=== PATIENT | female | born 1935 | race Caucasian/White ===

== ENCOUNTER → 2018-04-13 09:52 | Outpatient (CLI) | payer MEDICARE, OTHER, SELFPAY ==
[2018-04-13 10:36] LABS: Add Manual Diff / Slide Review NO; Basophils Percent Auto 1.1 % (0-2); Eosinophils Percent Auto 0.9 % (2-4); Hematocrit 41.9 % (36-46); Lymphocytes Percent Auto 27.7 % (25-40); Mean Corpuscular HGB Conc 33.4 % (30-36); Mean Corpuscular Hemoglobin 31.2 PG (26-34); Mean Corpuscular Volume 93.2 fL (80-100); Monocytes Percent Auto 7.2 % (3-14); Neutrophils Absolute Auto 5200 /uL (3000-5900); Neutrophils Percent Auto 63.1 % (50-75); Platelet Count 238 X10^3/uL (150-400); Red Cell Distribution Width 13.8 % (11.6-14.8); White Blood Cell Count 8.3 X10^3/uL (4.5-11.0)
[2018-04-13 10:53] LABS: Alanine Aminotransferase 21 IU/L (9-52); Albumin 4.3 g/dL (3.5-5.0); Albumin Globulin Ratio 1.4 (1.0-2.8); Alkaline Phosphatase 93 U/L (38-126); Aspartate Aminotransferase 23 IU/L (14-36); Bilirubin Total 0.5 mg/dL (0.2-1.3); Blood Urea Nitrogen 27 mg/dL (7-17); Calcium 9.4 mg/dL (8.4-10.2); Carbon Dioxide 30 mmol/L (22-32); Chloride 106 mmol/L (98-107); Estimated Glomerular Filt Rate > 60.0 mL/min (>60); Globulin 3.1 g/dL (1.7-4.1); Glucose 91 mg/dL (80-110); HEMOLYSIS < 15 (0-50); Potassium 4.8 mmol/L (3.4-5.1); Sodium 146 mmol/L (137-145); Total Protein 7.4 g/dL (6.3-8.2)
[2018-04-15 16:09] LABS: Cancer Antigen 27.29 14 U/mL (< 38)
== END ==
PROVIDERS: Family Provider Family Medicine; PCP Family Medicine; Visit Provider Nurse Practitioner Gerontology
DX: C50.112 Malignant neoplasm of central portion of left female breast (principal)
CPT/HCPCS: 36415; 80053; 85025; 86300

== ENCOUNTER 2018-04-20 11:40 | Oncology outpatient (ONC) | payer MEDICARE, OTHER, SELFPAY ==
--- NOTE | 2018-04-20 11:50 | ONC.PN ---
PN -Subjective Interval history: Chief Complaint: 82 year old with left breast cancer here for scheduled follow up History of Present illness: She was last seen by Dr. Romero about 1 year ago in April of 2017. Patient has a history of left-sided breast cancer. Patient underwent lumpectomy on October 30, 2011. 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 On sentinel lymph node negative. The primary tumor was 1.1 cm in diameter. ER positive, MT positive, HER2 neg. Patient completed radiotherapy in January of 2012. Oncotype testing reviewed a recurrence score of only 10. And patient was negative for BRCA1 gene in September 2011. Patient also underwent hysterectomy/bilateral salpingo-oophorectomy in 2005. For uterus prolapse. Patient is a 1. Since last visit patient said that overall she has been doing pretty good. Patient said she is on a weight watchers program and has lost about 30 lb. Patient said that after the weight loss, she is moving better than before. Patient reported occasional twinges in the left breast and the left axilla at the place where the surgery happened before. Patient reported that on Friday, February the 12/31/2017, she noticed one episode of vaginal bleeding. It was somewhat painful. Patient has not scheduled visit to see a SENIOR MARKETING COORDINATOR doctor yet. Patient is planning to call Dr. Santos for the pelvic examination. She denies any new onset bone pain. She denies any hip pain. She denies any nausea or vomiting. No fever no chills. No nausea no vomiting. No diarrhea and no constipation. Patient underwent mammogram in November of 2017. The mammogram was interpreted as normal and 1 year follow-up screening mammogram was recommended. - Patient Self-Reported Symptoms SR Musculoskeletal issues: Joint pain or swelling (right shoulder pain) - Additional ROS All systems PM: reviewed and no additional remarkable complaints except as stated Home Medications and Allergies Home Medications Medication Instructions Recorded Confirmed Type ibuprofen 400 mg PO PRN #0 09/04/12 History cimetidine 200 mg PO PRN PRN #0 04/14/17 History potassium bicarb-citric acid 50 meq #0 07/22/17 History Allergies Allergy/AdvReac Type Severity Reaction Status Date / Time ciprofloxacin Allergy Unknown RASH Unverified 10/22/17 12:05 Sulfa (Sulfonamide Allergy Unknown RASH Unverified 10/22/17 12:05 Antibiotics) Exam Vital signs: Temperature 98.1?, heart rate 75, respiratory rate 16, blood pressure 142/76, pulse ox 96% on room air, weight 149.6 lb. ECOG 1 Narrative: Constitutional: Well developed, well nourished, not in any acute respiratory distress, average body habitus, well groomed, pleasant and cooperative, younger than stated age. HEENT: Normocephalic atraumatic. Extraocular muscle movement intact. Pupils are round, equal and reactive to light and accommodations. Anicteric sclera. No hearing difficulty; Oral mucus membrane moist and without ulcers. Neck: Supple, symmetrical, and tracheal midline; No palpable thyromegaly and no palpable lymph nodes. Respiratory: No use of accessory muscles. Clear to auscultation, and no wheezes or rales or rubs. Cardiovascular: Regular rate and rhythm, S1 and S2 normal, no murmurs gallops or rubs. No JVD. No pitting edema of lower extremities. Abdomen: Soft, nontender, non-distended, bowel sounds normal, no palpable organomegaly, no hernia, no palpable masses. Lower extremities: No palpable pedal edema. Lymphatic: no palpable lymph nodes in the neck, axillae, or groins. Musculoskeletal: normal gait and station, no clubbing, no cyanosis, no pitting edema. Skin: no rashes, no ulcers, no petechiae Neurological: Awake and alert and oriented x3. CN II-XII grossly intact. No focal motor or sensory deficit. Psychiatric: Good judgment, good insight, normal affect, normal thought process, cooperative, no depression, no anxiety. Breast exam: Right: No nipple retraction, no skin changes, no palpable masses, no palpable lymph nodes in the right axilla; left: No nipple retraction, no skin changes, surgical wound noted completely healed, no palpable nodules or masses, no palpable lymph nodes in the left axilla. All physical examinations were chaperoned. Results - Labs The lab results were reviewed with the patient. A copy of the lab results were given to the patient. CBC CMP were completely within normal range. CA 27-29 was 14 which is also normal. Assessment and Plan (1) Breast cancer, left breast I talked with the patient that I do not think there is any clinical or biochemical evidence to suggest disease recurrence or metastasis. The mammogram was also normal. I will have the patient continue annual mammogram screening. The next mammogram will be scheduled in November of 2018. I will see the patient after the mammogram. Patient voiced understanding. We will recheck CBC, CMP. and CA 27-29 when she shows up for follow-up. (2) Vaginal bleeding Patient endorsed 1 episode of vaginal bleeding which is clearly abnormal. Patient has had a hysterectomy in the past together with salpingo-oophorectomy for uterus prolapse. Patient has history of rectocele and cystocele. I encouraged the patient to follow up with her SENIOR MARKETING COORDINATOR physician for a complete physical examination including pelvic examination. Patient promised that she will call the doctor for the follow-up. (3) Right shoulder pain Patient will follow up with her orthopedic physician. The right shoulder pain most likely represents osteoarthritis. At one point, patient's orthopedic physician recommended surgery. However patient said that she will put off until she is not able to tolerate.
--- NOTE | 2018-04-20 12:02 | P.PNONC_ITS ---
PN -Subjective Interval history: Chief Complaint: 82 year old with left breast cancer here for scheduled follow up History of Present illness: She was last seen by Dr. Romero about 1 year ago in April of 2017. Patient has a history of left-sided breast cancer. Patient underwent lumpectomy on October 30, 2011. And the pathology showed infiltrating lobular carcinoma/ lobular carcinoma in-situ, pT1c pN0(i-). On sentinel lymph node negative. The primary tumor was 1.1 cm in diameter. ER positive, [place] positive, HER2 neg. Patient completed radiotherapy in January of 2012. Oncotype testing reviewed a recurrence score of only 10. And patient was negative for BRCA1 gene in September 2011. Patient also underwent hysterectomy/bilateral salpingo-oophorectomy in 2005. For uterus prolapse. Patient is a 1. Since last visit patient said that overall she has been doing pretty good. Patient said she is on a weight watchers program and has lost about 30 lb. Patient said that after the weight loss, she is moving better than before. Patient reported occasional twinges in the left breast and the left axilla at the place where the surgery happened before. Patient reported that on Friday, February the 12/31/2017, she noticed one episode of vaginal bleeding. It was somewhat painful. Patient has not scheduled visit to see a OBSERVER GRAVITY PROSPECTING doctor yet. Patient is planning to call Dr. Santos for the pelvic examination. She denies any new onset bone pain. She denies any hip pain. She denies any nausea or vomiting. No fever no chills. No nausea no vomiting. No diarrhea and no constipation. Patient underwent mammogram in November of 2017. The mammogram was interpreted as normal and 1 year follow-up screening mammogram was recommended. - Patient Self-Reported Symptoms SR Musculoskeletal issues: Joint pain or swelling (right shoulder pain) - Additional ROS All systems PM: reviewed and no additional remarkable complaints except as stated Home Medications and Allergies Home Medications Medication Instructions Recorded Confirmed Type ibuprofen 400 mg PO PRN #0 09/04/12 History cimetidine 200 mg PO PRN PRN #0 04/14/17 History potassium bicarb-citric acid 50 meq #0 07/22/17 History Allergies Allergy/AdvReac Type Severity Reaction Status Date / Time ciprofloxacin Allergy Unknown RASH Unverified 10/22/17 12:05 Sulfa (Sulfonamide Allergy Unknown RASH Unverified 10/22/17 12:05 Antibiotics) Exam Vital signs: Temperature 98.1?, heart rate 75, respiratory rate 16, blood pressure 142/76, pulse ox 96% on room air, weight 149.6 lb. ECOG 1 Narrative: Constitutional: Well developed, well nourished, not in any acute respiratory distress, average body habitus, well groomed, pleasant and cooperative, younger than stated age. HEENT: Normocephalic atraumatic. Extraocular muscle movement intact. Pupils are round, equal and reactive to light and accommodations. Anicteric sclera. No hearing difficulty; Oral mucus membrane moist and without ulcers. Neck: Supple, symmetrical, and tracheal midline; No palpable thyromegaly and no palpable lymph nodes. Respiratory: No use of accessory muscles. Clear to auscultation, and no wheezes or rales or rubs. Cardiovascular: Regular rate and rhythm, S1 and S2 normal, no murmurs gallops or rubs. No JVD. No pitting edema of lower extremities. Abdomen: Soft, nontender, non-distended, bowel sounds normal, no palpable organomegaly, no hernia, no palpable masses. Lower extremities: No palpable pedal edema. Lymphatic: no palpable lymph nodes in the neck, axillae, or groins. Musculoskeletal: normal gait and station, no clubbing, no cyanosis, no pitting edema. Skin: no rashes, no ulcers, no petechiae Neurological: Awake and alert and oriented x3. CN II-XII grossly intact. No focal motor or sensory deficit. Psychiatric: Good judgment, good insight, normal affect, normal thought process , cooperative, no depression, no anxiety. Breast exam: Right: No nipple retraction, no skin changes, no palpable masses , no palpable lymph nodes in the right axilla; left: No nipple retraction, no skin changes, surgical wound noted completely healed, no palpable nodules or masses, no palpable lymph nodes in the left axilla. All physical examinations were chaperoned. Results - Labs The lab results were reviewed with the patient. A copy of the lab results were given to the patient. CBC CMP were completely within normal range. CA 27-29 was 14 which is also normal. Assessment and Plan (1) Breast cancer, left breast I talked with the patient that I do not think there is any clinical or biochemical evidence to suggest disease recurrence or metastasis. The mammogram was also normal. I will have the patient continue annual mammogram screening. The next mammogram will be scheduled in November of 2018. I will see the patient after the mammogram. Patient voiced understanding. We will recheck CBC, CMP. and CA 27-29 when she shows up for follow-up. (2) Vaginal bleeding Patient endorsed 1 episode of vaginal bleeding which is clearly abnormal. Patient has had a hysterectomy in the past together with salpingo-oophorectomy for uterus prolapse. Patient has history of rectocele and cystocele. I encouraged the patient to follow up with her OBSERVER GRAVITY PROSPECTING physician for a complete physical examination including pelvic examination. Patient promised that she will call the doctor for the follow-up. (3) Right shoulder pain Patient will follow up with her orthopedic physician. The right shoulder pain most likely represents osteoarthritis. At one point, patient's orthopedic physician recommended surgery. However patient said that she will put off until she is not able to tolerate.
[2018-04-20 13:16] VITALS: BP 176/90; PULSE 98; RESP 18; TEMP 37.1; O2SAT 96
== END 2018-04-21 12:00 ==
LOC: ONC 11:44
PROVIDERS: Family Provider Family Medicine; PCP Family Medicine; Visit Provider Internal Medicine Hematology & Oncology
DX: Z85.3 Personal history of malignant neoplasm of breast (principal); N93.9 Abnormal uterine and vaginal bleeding, unspecified; M25.511 Pain in right shoulder; Z08 Encounter for follow-up examination after completed treatment for malignant neoplasm
CPT/HCPCS: 99214

== ENCOUNTER 2018-07-24 06:43 | Day surgery (SDC) | payer MEDICARE, OTHER, SELFPAY ==
[2018-07-24] VITALS (8 sets, daily range): BP systolic 100–138; BP diastolic 65–77; PULSE 66–85; RESP 11–16; TEMP 35.6–36.3; O2SAT 89–99; BMI 29.2
--- NOTE | 2018-07-24 | PATH_ITS ---
[facility] Accession Number: [id number] . 01 Material submitted: . HEPATIC FLEXTURE POLYP . 02 Diagnosis: Hepatic Flexure Polyp: Tubular adenoma. MRV/07/27/2018 . 02 Electronically signed: . Tommie Mcarthur MD, PhD, Pathologist NPI- [id number] . 01 Gross description: . Received in one formalin-filled container labeled with the patient's name and labeled hepatic flexure polyp, are three 0.1-0.3 cm portions of tissue, which are entirely submitted in one cassette. ([id number]) /FRR . 02 Pathologist provided ICD-10: D12.3 . 02 CPT . 600290 Performed at: 01 [facility] [address] [address], [place], [place] [id number] MD Bharath Villela MD Phone: [phone] Performed at: 02 [facility] [place] [place] [address] [place], [place] [id number] MD Parul Lyons MD Phone: [phone]
--- NOTE | 2018-07-24 07:46 | PM.HP.1 ---
History of Present Illness Date Patient Seen: 07/24/18 Time Patient Seen: 07:46 Chief complaint: colonoscopy 52656 Narrative: Patient is a woman here for a colonoscopy. She had a large flat polyp removed in the cecum 1 year ago. She is brought back to make sure in fact it was entirely removed and there is no recurrence. Patient History Medical History Hypertension (Acute) Uterus prolapse (Acute) Surgical History H/O hysterectomy for benign disease (Acute) Meds Home Medications Medication Instructions Recorded Confirmed Type ibuprofen 400 mg PO PRN #0 09/04/12 07/24/18 History cimetidine 200 mg PO PRN PRN #0 04/14/17 07/24/18 History phenazopyridine 100 mg tablet 100 mg PO TID PRN 05/12/18 07/24/18 History acetaminophen [Acetaminophen Extra 500 mg PO Q6H PRN 07/24/18 07/24/18 History Strength] losartan 50 mg PO DAILY PRN 07/24/18 07/24/18 History melatonin 1 mg PO BEDTIME PRN 07/24/18 07/24/18 History Allergies Allergy/AdvReac Type Severity Reaction Status Date / Time ciprofloxacin Allergy Unknown RASH Verified 07/24/18 07:08 Sulfa (Sulfonamide Allergy Unknown RASH Verified 07/24/18 07:08 Antibiotics) Review of Systems Review of Systems Patient has a known heart murmur. She suffers from hypertension and elevated cholesterol. She has had some sinus drainage and slight cold recently. She has a chronic shoulder pain reflux disease history of diverticulosis. She had breast cancer treated in 2011. No recurrence. Exam Vital Signs (past 8 hours): - 07/24/18 07:24 Temperature 96.1 F L Pulse Rate 85 Respiratory Rate 16 Blood Pressure 138/74 Pulse Oximetry 99 Oxygen Delivery Method Room Air Narrative Exam Narrative: No apparent distress. Eyes nonicteric. Lungs clear to auscultation no rales or rhonchi. I do not appreciate a heart murmur she has regular rate and rhythm no gallop. Abdomen is soft nontender protuberant without mass or hernia appreciated. Assessment & Plan Plan: Assessment/Plan Narrative: Patient who had a large cecal polyp that was flat is brought back to confirm no regrowth incomplete resolution. I have discussed the procedure and the rationale with the patient including risks of bleeding, perforation which would necessitate a major operation, failure to find remove all lesions and the potential to tattoo. They appeared to understand and wished to proceed.
--- NOTE | 2018-07-24 07:54 | PM.PREOP ---
Pre-operative Note Interval Note History & Physical reviewed/Exam performed by Physician: Yes Changes to H&P: No ASA Class (for procedural sedation): II
[2018-07-24] MEDS: fentaNYL 250 MCG/5 ML INJ IV (08:16)
[2018-07-24] MEDS: MIDAZOLAM 5 MG/5 ML VIAL IV (08:16)
[2018-07-24] MEDS: SODIUM CHLORIDE 0.9% 1,000 ML 84 ML IV (08:17)
--- NOTE | 2018-07-24 08:23 | PM.OP.ENDO ---
Operative Date/Time/Diagnoses Date of procedure: 07/24/18 Time of procedure: 08:24 Pre-op diagnosis: History of large cecal polyp Post-op diagnosis: same Procedure & Clinicians Study performed: Colonoscopy with cold biopsy Same procedure as scheduled: Yes Indications: Large flat cecal polyp removed 1 year ago. Patient is brought back to confirm completely removal and no regrowth. Surgeon: Sahil Arredondo Procedure Notes SCOAP/Timeout: Performed Procedure in detail: The patient was placed in the left lateral decubitus position and underwent IV sedation directed by the surgeon consisting of fentanyl and Versed. Digital exam was unremarkable except for some mild narrowing. The scope was inserted and advanced through the rectum into the sigmoid, descending, transverse, and ascending colon. The sigmoid was noted to contain numerous diverticuli and there was a fair amount of tortuosity and some narrowing in the sigmoid. There was a small polypoidal lesion at the hepatic flexure which was biopsied with cold biopsy forceps and completely removed. Pressure had to be applied and the patient repositioned in order to reach the cecum. The cecum was reached identified by the ileocecal valve and the appendiceal opening. The ileocecal valve was successfully cannulated. The terminal ileum was normal in appearance. The scope was gradually brought out. No other Polyps were found. The scope ultimately was retroflexed in the rectum. The appearance was[normal]. The scope was removed and the patient tolerated the procedure well Scope withdrawal time: 6-1/2 minutes Sedation minutes: 27 Findings: diverticulosis and polyp (Hepatic flexure) Specimen(s): other (Polyp) Complications: none Recommendations: Colonscopy in 5 years (If you are in good health) Follow up: as needed Disposition: PACU
--- NOTE | 2018-07-24 09:10 | SUR.PHASEII ---
Pt reported feeling mildly quease, Queasease provided, pt reported nausea improved.
[2018-07-24] MEDS: ONDANSETRON 4 MG ODT 8 MG SL (09:45)
== END 2018-07-24 09:51 | disposition home or self-care (01) ==
PROVIDERS: Visit Provider Specialist
PROC: 0DJD8ZZ Inspection of Lower Intestinal Tract, Via Natural or Artificial Opening Endoscopic (ICD-10-PCS; CPT 45378; principal; 2018-07-24 07:45)
DX: Z86.010 Personal history of colon polyps (principal); K57.30 Diverticulosis of large intestine without perforation or abscess without bleeding; D12.3 Benign neoplasm of transverse colon; I10 Essential (primary) hypertension; E78.00 Pure hypercholesterolemia, unspecified; R01.1 Cardiac murmur, unspecified
CPT/HCPCS: 45380; 88305; 99152; 99153; J2250; J3010

== ENCOUNTER → 2018-11-25 12:52 | Outpatient (CLI) | payer MEDICARE, OTHER, SELFPAY ==
--- NOTE | 2018-11-25 | DI.MG.S_ITS ---
BILATERAL DIGITAL SCREENING MAMMOGRAM 3D/2D WITH CAD: 11/25/2018 CLINICAL: Routine screening. Personal history of left breast cancer. Family history of breast cancer. Comparison is made to exams dated: 11/15/2017 mammogram, 10/14/2016 mammogram, and 09/28/2015 mammogram - [facility]. There are scattered fibroglandular elements in both breasts. Current study was also evaluated with a Computer Aided Detection (CAD) system. There are benign post operative findings in the left breast. No significant masses, calcifications, or other findings are seen in either breast. There has been no significant interval change. IMPRESSION: There is no mammographic evidence of malignancy. A 1 year screening mammogram is recommended. This exam was interpreted at Station ID: [id number]. NOTE: For mammograms, a report in lay terms will be sent to the patient. Approximately 15% of breast malignancies will not be visualized mammographically. In the management of a palpable breast mass, a negative mammogram must not discourage biopsy of a clinically suspicious lesion. Electronically Signed By: Jada reis/lorena:11/25/2018 18:27:21 copy to: Osmar Ramirez letter sent: Normal Exam ACR BI-RADS Category 2: Benign Finding(s) 3342F
== END ==
PROVIDERS: PCP Family Medicine
DX: Z12.31 Encounter for screening mammogram for malignant neoplasm of breast (principal); Z85.3 Personal history of malignant neoplasm of breast; Z80.3 Family history of malignant neoplasm of breast
CPT/HCPCS: 77063; 77067

== ENCOUNTER → 2018-12-04 13:59 | Outpatient (CLI) | payer MEDICARE, OTHER, SELFPAY ==
[2018-12-04 14:43] LABS: Add Manual Diff / Slide Review NO; Basophils Absolute Auto 100 /uL (0-100); Eosinophils Absolute Auto 100 /uL (0-450); Eosinophils Percent Auto 0.7 % (2-4); Hematocrit 42.7 % (36-46); Hemoglobin 14.3 g/dL (12.0-16.0); Lymphocytes Absolute Auto 2500 /uL (1100-4500); Lymphocytes Percent Auto 29.4 % (25-40); Mean Corpuscular HGB Conc 33.4 % (30-36); Mean Corpuscular Hemoglobin 31.7 PG (26-34); Mean Corpuscular Volume 94.9 fL (80-100); Monocytes Absolute Auto 600 /uL (0-900); Monocytes Percent Auto 6.8 % (3-14); Neutrophils Absolute Auto 5400 /uL (1500-7000); Neutrophils Percent Auto 62.1 % (50-75); Platelet Count 248 X10^3/uL (150-400); Red Cell Distribution Width 14.1 % (11.6-14.8); White Blood Cell Count 8.7 X10^3/uL (4.5-11.0)
[2018-12-04 14:56] LABS: Alanine Aminotransferase 20 IU/L (9-52); Albumin 4.4 g/dL (3.5-5.0); Albumin Globulin Ratio 1.3 (1.0-2.8); Alkaline Phosphatase 108 U/L (38-126); Aspartate Aminotransferase 24 IU/L (14-36); BUN Creatinine Ratio 36.7 (6-22); Bilirubin Total 0.5 mg/dL (0.2-1.3); Blood Urea Nitrogen 22 mg/dL (7-17); Calcium 9.6 mg/dL (8.4-10.2); Carbon Dioxide 30 mmol/L (22-32); Chloride 103 mmol/L (98-107); Estimated Glomerular Filt Rate > 60.0 mL/min (>60); Globulin 3.3 g/dL (1.7-4.1); Glucose 91 mg/dL (80-110); HEMOLYSIS < 15 (0-50); Potassium 4.9 mmol/L (3.4-5.1); Sodium 141 mmol/L (137-145); Total Protein 7.7 g/dL (6.3-8.2)
[2018-12-08 16:22] LABS: Cancer Antigen 27.29 14 U/mL (< 38)
== END ==
PROVIDERS: PCP Family Medicine; Visit Provider Internal Medicine Hematology & Oncology
DX: C50.912 Malignant neoplasm of unspecified site of left female breast (principal)
CPT/HCPCS: 36415; 80053; 85025; 86300

== ENCOUNTER → 2019-06-07 09:47 | Outpatient (CLI) | payer MEDICARE, OTHER, SELFPAY ==
[2019-06-07 10:50] LABS: Add Manual Diff / Slide Review NO; Basophils Absolute Auto 100 /uL (0-100); Basophils Percent Auto 0.9 % (0-2); Eosinophils Absolute Auto 100 /uL (0-450); Eosinophils Percent Auto 1.1 % (2-4); Hematocrit 42.2 % (36-46); Hemoglobin 14.3 g/dL (12.0-16.0); Lymphocytes Absolute Auto 2500 /uL (1100-4500); Lymphocytes Percent Auto 30.4 % (25-40); Mean Corpuscular HGB Conc 33.8 % (30-36); Mean Corpuscular Hemoglobin 31.5 PG (26-34); Mean Corpuscular Volume 93.2 fL (80-100); Monocytes Absolute Auto 700 /uL (0-900); Monocytes Percent Auto 9.1 % (3-14); Neutrophils Absolute Auto 4700 /uL (1500-7000); Neutrophils Percent Auto 58.5 % (50-75); Platelet Count 252 X10^3/uL (150-400); Red Blood Cell Count 4.53 X10^6/uL (4.0-5.2); Red Cell Distribution Width 14.1 % (11.6-14.8); White Blood Cell Count 8.1 X10^3/uL (4.5-11.0)
[2019-06-07 11:01] LABS: Alanine Aminotransferase 18 IU/L (<35); Albumin 4.5 g/dL (3.5-5.0); Albumin Globulin Ratio 1.4 (1.0-2.8); Alkaline Phosphatase 108 U/L (38-126); Aspartate Aminotransferase 29 IU/L (14-36); BUN Creatinine Ratio 32.9 (6-22); Bilirubin Total 0.5 mg/dL (0.2-1.3); Blood Urea Nitrogen 23 mg/dL (7-17); Calcium 9.7 mg/dL (8.4-10.2); Carbon Dioxide 29 mmol/L (22-32); Chloride 102 mmol/L (98-107); Estimated Glomerular Filt Rate > 60.0 mL/min (>60); Globulin 3.2 g/dL (1.7-4.1); Glucose 98 mg/dL (80-110); HEMOLYSIS < 15 (0-50); Potassium 4.5 mmol/L (3.4-5.1); Sodium 140 mmol/L (137-145); Total Protein 7.7 g/dL (6.3-8.2)
[2019-06-07 11:26] LABS: Vitamin D 25 Hydroxy (D3) 37.8 ng/mL (30.0-100.0)
== END ==
PROVIDERS: PCP Family Medicine; Visit Provider Internal Medicine Hematology & Oncology
DX: C50.912 Malignant neoplasm of unspecified site of left female breast (principal); Z78.0 Asymptomatic menopausal state; M81.0 Age-related osteoporosis without current pathological fracture; Z90.722 Acquired absence of ovaries, bilateral
CPT/HCPCS: 36415; 77080; 80053; 82306; 85025

== ENCOUNTER → 2019-06-17 11:20 | Oncology outpatient (ONC) | payer MEDICARE, OTHER, SELFPAY ==
--- NOTE | 2018-12-09 15:10 | ONC.PN ---
PN -Subjective Interval history: She was last seen by Dr. Romero about 1 year ago in April of 2017. Patient has a history of left-sided breast cancer. Patient underwent lumpectomy on October 30, 2011. 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 On sentinel lymph node negative. The primary tumor was 1.1 cm in diameter. ER positive, MT positive, HER2 neg. Patient completed radiotherapy in January of 2012. Oncotype testing reviewed a recurrence score of only 10. And patient was negative for BRCA1 gene in September 2011. Patient also underwent hysterectomy/bilateral salpingo-oophorectomy in 2005. For uterus prolapse. Patient is a 1. Interim Events: Patient underwent mammogram in November of 2018. The mammogram was interpreted as normal and 1 year follow-up screening mammogram was recommended. No pain. No fatigue. A few twinges in the left axilla. No lumps or bumps. No bone pain. - Additional ROS All systems PM: reviewed and no additional remarkable complaints except as stated Home Medications and Allergies Home Medications Medication Instructions Recorded Confirmed Type ibuprofen 400 mg PO PRN #0 09/04/12 12/09/18 History cimetidine 200 mg PO PRN PRN #0 04/14/17 12/09/18 History phenazopyridine 100 mg tablet 100 mg PO TID PRN 05/12/18 12/09/18 History acetaminophen [Acetaminophen Extra 500 mg PO Q6H PRN 07/24/18 12/09/18 History Strength] losartan 50 mg PO DAILY PRN 07/24/18 12/09/18 History melatonin 1 mg PO BEDTIME PRN 07/24/18 12/09/18 History Allergies Allergy/AdvReac Type Severity Reaction Status Date / Time ciprofloxacin Allergy Unknown RASH Verified 07/24/18 07:08 Sulfa (Sulfonamide Allergy Unknown RASH Verified 07/24/18 07:08 Antibiotics) Exam Vital signs: Last Vital Signs Temp 98.6 F 12/09/18 15:17 Pulse 83 12/09/18 15:17 Resp 16 12/09/18 15:17 BP 171/101 H 12/09/18 15:17 Pulse Ox 97 12/09/18 15:17 ECOG 1 Narrative: Gen: WDWN, NAD, pleasant and cooperative. HEENT: NCAT, EOMI, PERRLA, anicteric sclera. Neck: Supple, No palpable thyromegaly or lymphadenopathy. Respiratory: CTAB, no wheezes audible. No JVD Cardiovascular: RRR, S1 and S2 normal, no M/G/R. Abdomen: Soft, NTND, BS normal, no palpable organomegaly Extremities: No LE pitting edema. Lymphatic: no palpable lymph nodes in the neck, axillae, or groins. Neurological: AOx3, CN II-XII grossly intact. No focal motor or sensory deficit. Psychiatric: Good judgment and insight; normal affect; normal thought process; cooperative, no depression, no anxiety. Breast exam: deferred. Assessment and Plan (1) Breast cancer, left breast I talked with the patient that I do not think there is any clinical or biochemical evidence to suggest disease recurrence or metastasis. The mammogram was also normal. I will have the patient continue annual mammogram screening. Today, I also talked time reviewing the DEXA scan report from 2017. It showed evidence of osteopenia as well as osteoporosis at L2 level. I instructed the patient to start taking vitamin-D 2000 units once a day together with elemental calcium at least 1000 mg per day. Patient voiced understanding. Plan: 1. Calcium 1000 mg daily 2. Vitamin D 2000 units daily 3. DEXA scan in May 2019 4. RTC after DEXA scan. Repeat CBC, CMP, 25(OH)D.
[2018-12-09 15:17] VITALS: BP 171/101; PULSE 83; RESP 16; TEMP 37; O2SAT 97
--- NOTE | 2019-05-27 13:58 | ONC.SCHED ---
changed patient's appointment from 06/14 to 06/17. Patient's phone voicemail box is full so mailed a new appointment slip with an explanation. Patient may call to reschedule if this new date is inconvenient for her
[2019-06-17 11:46] VITALS: BP 144/88; PULSE 84; RESP 20; TEMP 36.8; O2SAT 97
--- NOTE | 2019-06-17 11:54 | ONC.PN ---
PN -Subjective Interval history: ID/CC: 84 year old with left breast cancer. Oncology History: Deanne underwent left breast lumpectomy on October 30, 2011. 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 One sentinel lymph node negative. The primary tumor was 1.1 cm in diameter. ER positive, MT positive, HER2 neg. Patient completed radiotherapy in January 2012. Oncotype testing was 10. She was negative for BRCA1 gene in September 2011. Patient also underwent hysterectomy/bilateral salpingo-oophorectomy in 2005. For uterus prolapse. Patient is a 1. Interim Events: Patient underwent mammogram in November of 2018. The mammogram was interpreted as normal and 1 year follow-up screening mammogram was recommended. No pain. No fatigue. No lumps or bumps. No bone pain. - Additional ROS All systems PM: reviewed and no additional remarkable complaints except as stated Home Medications and Allergies Home Medications Medication Instructions Recorded Confirmed Type ibuprofen 400 mg PO PRN #0 09/04/12 06/17/19 History cimetidine 200 mg PO PRN PRN #0 04/14/17 06/17/19 History acetaminophen [Acetaminophen Extra 500 mg PO Q6H PRN 07/24/18 06/17/19 History Strength] melatonin 1 mg PO BEDTIME PRN 07/24/18 06/17/19 History adjuvant AS01B (PF)vial 1 of 2 0.5 ml IM ONCE #0.5 ml 12/28/18 06/17/19 Rx diph,pertuss(acel),tet vac(PF) 0.5 ml IM ONCE #0.5 ml 12/28/18 06/17/19 Rx losartan 50 mg tablet 50 mg PO DAILY PRN #90 tab 12/28/18 06/17/19 Rx phenazopyridine 100 mg tablet 100 mg PO TID PRN #20 tab 12/28/18 06/17/19 Rx pneumoc 13-maggie conj-dip cr(PF) 0.5 0.5 ml IM ONCE #0.5 ml 12/28/18 06/17/19 Rx mL IM syringe calcium carbonate [Calcium 500] 500 mg DAILY 06/17/19 06/17/19 History cholecalciferol (vitamin D3) 1,000 unit PO DAILY 06/17/19 06/17/19 History [Vitamin D3] Allergies Allergy/AdvReac Type Severity Reaction Status Date / Time ciprofloxacin Allergy Unknown RASH Verified 12/28/18 09:49 Sulfa (Sulfonamide Allergy Unknown RASH Verified 12/28/18 09:49 Antibiotics) Exam Vital signs: Vital Signs Temp Pulse Resp BP Pulse Ox 06/17/19 11:46 98.2 F 84 20 144/88 H 97 Intake and Output 06/16/19 06/17/19 06/17/19 23:59 07:59 15:59 Other: Weight 78.7 kg Patient Weight 06/17/19 23:59 Weight 78.7 kg - Constitutional positive no acute distress, positive average body habitus, positive cooperative - Routine HEENT Exam Head: Present: normocephalic, atraumatic Eye: Present: EOMI, PERRL, normal accommodation. Absent: conjunctival icterus ENT: Present: mucous membranes moist - Routine Neck Exam Present: supple. Absent: lymphadenopathy, thyromegaly - Routine Chest/Breast/Axilla Exam Axillae: Absent: lymphadenopathy - Routine Respiratory Exam Absent: Clear to auscultation bilaterally, wheezes - Routine Cardiovascular Exam Present: RRR, S1, S2. Absent: murmur, gallop, rubs - Routine Abdominal Exam Present: soft. Absent: normoactive bowel sounds, tenderness, organomegaly - Routine Extremities Exam Absent: edema - Routine Neurological Exam Present: alert, oriented X3, CN II-XII intact. Absent: sensory deficit, motor deficit - Routine Psychiatric Exam Present: normal affect Assessment and Plan (1) Breast cancer, left breast Overview Deanne was diagnosed with left breast cancer and underwent left breast lumpectomy on October 30, 2011. 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 ER positive, MT positive, HER2 neg. Patient completed radiotherapy in January 2012. Oncotype testing was 10. She was negative for BRCA1 gene in September 2011. Patient also underwent hysterectomy/bilateral salpingo-oophorectomy in 2005. For uterus prolapse. Patient is a 1. Assessment: Today I reviewed the DEXA scan results with the patient. Patient's DEXA scan showed osteopenia in the lumbar spine, osteopenia or almost osteoporosis in the left hip and osteoporosis in the right hip. I talked with her that usually we would recommend treatment with bisphosphonates or Prolia. The goal is to reduce the risk of pathological fracture. I also explained to the patient about the potential side effects. Especially I talked about the uncommon side effects of osteonecrosis of the jaw. Patient herself is very adamant that she does not want the Zometa infusion. As far as Prolia is concerned, she said she is going to talk with her primary care provider about the injection. She may choose to get the injection at her primary care provider's office. I talked with her that she should continue to take the calcium and vitamin-D. Patient voiced understanding. Plan: 1. Calcium 1000 mg daily 2. Vitamin D 2000 units daily 3. She will talk with her PCP about Prolia injection 4. RTC in 6 months, screening mammogram, CBC, CMP.
--- NOTE | 2019-11-15 10:57 | ONC.SCHED ---
Patient moved already once; please don't move again if possible.
--- NOTE | 2019-12-28 12:57 | ONC.SCHED ---
patient request cancel of December 2019 appt, patient is seeing new PCP Dr Lucien Garcia at [facility] and she will see if he thinks she still needs to see an oncologist but she feels that it's no longer necessary
== END ==
PROVIDERS: PCP Family Medicine; Visit Provider Internal Medicine Hematology & Oncology
DX: Z08 Encounter for follow-up examination after completed treatment for malignant neoplasm (principal); Z85.3 Personal history of malignant neoplasm of breast; M81.0 Age-related osteoporosis without current pathological fracture
CPT/HCPCS: 99214

== ENCOUNTER 2019-08-26 08:44 | Day surgery (SDC) | payer MEDICARE, OTHER, SELFPAY ==
[2019-08-26] MEDS: PROPARACAINE 0.5% OPHTH SOL 2 DROPS EYE-OP (09:53)
[2019-08-26] MEDS: CATARACT EYE COMPOUND (10 DROPS/SYRINGE) 3 DROPS EYE-OP (09:57)
[2019-08-26 09:58] VITALS: BMI 31.1
[2019-08-26 10:02] VITALS: BP 163/92; PULSE 87; RESP 16; TEMP 36.4; O2SAT 100
--- NOTE | 2019-08-26 10:23 | PM.PREOP ---
Pre-operative Note Interval Note History & Physical reviewed/Exam performed by Physician: Yes Changes to H&P: No H&P completed within 30 days and has changed as indicated here:: Allergy clarification: The patient has taken ciprofloxacin three times. In the past she developed a rash after taking an antibiotic. She believes this was macrobid. She did not have a serious reaction the last time she took ciprofloxacin.
[2019-08-26] MEDS: TETRACAINE 0.5% OPHTH DROPS 4 ML 2 DROPS EYE-OP (11:08)
[2019-08-26] MEDS: BALANCED SALT IRRIG SOLN NO.2 15 ML 5 ML IRR (11:24)
[2019-08-26] MEDS: CHONDROIDTIN/SOD HYALURONATE 1.05 ML SYRINGE INTRAOCULA (11:25)
[2019-08-26] MEDS: LIDOCAINE 2% INJ SDV 2 ML INJ (11:25)
[2019-08-26] MEDS: MOXIFLOXACIN INJ 5 MG/ML VIAL EYE-OP (11:25)
[2019-08-26] MEDS: PHENYLEPHRINE/LIDOCAINE VIAL (OR) 0.2 ML EYE-OP (11:26)
[2019-08-26] MEDS: BALANCED SALT IRRIG SOLN NO.2 500 ML, EPINEPHrine 1 MG IRR (11:26)
--- NOTE | 2019-08-26 11:47 | PM.OP.1 ---
Procedure & Clinicians Procedure: Cataract extraction with intraocular lens implant, right. Same procedure as scheduled: Yes Indications: Visually significant age related nuclear sclerosis, right Surgeon: Mike Lancaster Click Yes if Unassisted: Yes Anesthesia Type: MAC +/- Operative Notes Procedure in detail: The patient was brought to the operating suite. The correct patient, surgical site and lens were confirmed. 0.5 % tetracaine drops were placed in the right eye. The patient was prepped and draped in the typical sterile manner. A lid speculum was placed in the eye. 2% lidocaine was placed on the eye. A paracentesis port was created with a side-port blade. 0.1 mL of 1% preservative free lidocaine with phenylephrine was injected into the anterior chamber. Viscoelastic was injected into the anterior chamber. A 2.6mm keratome was used to create a clear corneal temporal incision. Cystotome and Utrata forceps were used to create a continuous curvilinear capsulorrhexis. Balanced salt solution was used to hydrodissect the nucleus. Phacoemulsification was used to remove the lens. The capsular bag was inflated with viscoelastic. A Rosen ZCBOO +22.0D lens was inserted into the capsule. Viscoelastic was removed and the wound hydrated. The wound was found to be leak free and the eye was assessed to be at normal physiologic pressure. 0.1mL Moxifloxacin (5mg/mL) preservative free was injected into the anterior chamber. The lid speculum was removed and the patient left the operating room in excellent condition. Complications: none Post-operative Condition: stable Disposition: same day surgery
[2019-08-26 11:53] VITALS: BP 148/82; PULSE 75; RESP 16; TEMP 36.2; O2SAT 99
[2019-08-26 12:07] VITALS: BP 157/91; PULSE 70; RESP 16; TEMP 36.3; O2SAT 98
== END 2019-08-26 12:13 | disposition home or self-care (01) ==
LOC: OR 08:46
PROVIDERS: Referring Provider Ophthalmology; Visit Provider Ophthalmology
PROC: (CPT 66984; principal; 2019-08-26 10:30)
DX: H25.11 Age-related nuclear cataract, right eye (principal); H35.373 Puckering of macula, bilateral; H35.363 Drusen (degenerative) of macula, bilateral
CPT/HCPCS: 66984; J0171; J2250; J3010

== ENCOUNTER 2019-09-09 06:28 | Day surgery (SDC) | payer MEDICARE, OTHER, SELFPAY ==
[2019-09-09] MEDS: PROPARACAINE 0.5% OPHTH SOL 2 DROPS EYE-OP (07:09)
[2019-09-09] MEDS: CATARACT EYE COMPOUND (10 DROPS/SYRINGE) 3 DROPS EYE-OP (07:13)
[2019-09-09 07:15] VITALS: BP 152/88; PULSE 76; RESP 16; TEMP 36.9; O2SAT 99; BMI 31.4
--- NOTE | 2019-09-09 07:33 | PM.PREOP ---
Pre-operative Note Interval Note History & Physical reviewed/Exam performed by Physician: Yes Changes to H&P: No
[2019-09-09] MEDS: TETRACAINE 0.5% OPHTH DROPS 4 ML 2 DROPS EYE-OP (07:45)
[2019-09-09] MEDS: CHONDROIDTIN/SOD HYALURONATE 1.05 ML SYRINGE INTRAOCULA (08:05)
[2019-09-09] MEDS: BALANCED SALT IRRIG SOLN NO.2 15 ML 5 ML IRR (08:05)
[2019-09-09] MEDS: MOXIFLOXACIN INJ 5 MG/ML VIAL EYE-OP (08:06)
[2019-09-09] MEDS: LIDOCAINE 2% INJ SDV 2 ML INJ (08:06)
[2019-09-09] MEDS: BALANCED SALT IRRIG SOLN NO.2 500 ML, EPINEPHrine 1 MG IRR (08:07)
[2019-09-09] MEDS: PHENYLEPHRINE/LIDOCAINE VIAL (OR) 0.2 ML EYE-OP (08:07)
--- NOTE | 2019-09-09 08:23 | PM.OP.1 ---
Procedure & Clinicians Procedure: Cataract extraction with intraocular lens implant, left. Same procedure as scheduled: Yes Indications: Visually significant age related nuclear sclerosis, left Surgeon: Mike Lancaster Click Yes if Unassisted: Yes Anesthesia Type: MAC +/- Operative Notes Procedure in detail: The patient was brought to the operating suite. The correct patient, surgical site and lens were confirmed. 0.5 % tetracaine drops were placed in the left eye. The patient was prepped and draped in the typical sterile manner. A lid speculum was placed in the eye. 2% lidocaine was placed on the eye. A paracentesis port was created with a side-port blade. 0.1 mL of 1% preservative free lidocaine with phenylephrine was injected into the anterior chamber. Viscoelastic was injected into the anterior chamber. A 2.6mm keratome was used to create a clear corneal temporal incision. Cystotome and Utrata forceps were used to create a continuous curvilinear capsulorrhexis. Balanced salt solution was used to hydrodissect the nucleus. Phacoemulsification was used to remove the lens. The capsular bag was inflated with viscoelastic. A Rosen ZCBOO +22.5D lens was inserted into the capsule. Viscoelastic was removed and the wound hydrated. The wound was found to be leak free and the eye was assessed to be at normal physiologic pressure. 0.1mL Moxifloxacin (5mg/mL) preservative free was injected into the anterior chamber. The lid speculum was removed and the patient left the operating room in excellent condition. Complications: none Post-operative Condition: stable Disposition: same day surgery
[2019-09-09 08:33] VITALS: BP 159/89; PULSE 78; RESP 15; TEMP 36.2; O2SAT 99
== END 2019-09-09 08:51 | disposition home or self-care (01) ==
LOC: OR 06:31
PROVIDERS: Referring Provider Ophthalmology; Visit Provider Ophthalmology
PROC: (CPT 66984; principal; 2019-09-09 07:45)
DX: H25.12 Age-related nuclear cataract, left eye (principal)
CPT/HCPCS: 66984; J0171; J2250; J3010

== ENCOUNTER → 2019-11-29 08:14 | Outpatient (CLI) | payer MEDICARE, OTHER, SELFPAY ==
--- NOTE | 2019-11-29 08:15 | DI.MG.S_ITS ---
BILATERAL DIGITAL SCREENING MAMMOGRAM 3D/2D WITH CAD POST LUMPECTOMY: 11/29/2019 CLINICAL: Routine screening. Personal history of left breast cancer. Family history of breast cancer. Comparison is made to exams dated: 11/25/2018 mammogram, 11/15/2017 mammogram, and 10/14/2016 mammogram - [facility]. There are scattered fibroglandular elements in both breasts. Current study was also evaluated with a Computer Aided Detection (CAD) system. There are benign post operative findings in the left breast. No significant masses, calcifications, or other findings are seen in either breast. There has been no significant interval change. IMPRESSION: There is no mammographic evidence of malignancy. A 1 year screening mammogram is recommended. This exam was interpreted at Station ID: [id number]. NOTE: For mammograms, a report in lay terms will be sent to the patient. Approximately 15% of breast malignancies will not be visualized mammographically. In the management of a palpable breast mass, a negative mammogram must not discourage biopsy of a clinically suspicious lesion. Electronically Signed By: Clifford mathew/lorena:11/29/2019 11:32:54 copy to: Edison Oliva letter sent: Normal Exam ACR BI-RADS Category 2: Benign Finding(s) 3342F
== END ==
PROVIDERS: Referring Provider Internal Medicine Hematology & Oncology; Visit Provider Internal Medicine Hematology & Oncology
DX: Z12.31 Encounter for screening mammogram for malignant neoplasm of breast (principal); Z80.3 Family history of malignant neoplasm of breast; Z85.3 Personal history of malignant neoplasm of breast
CPT/HCPCS: 77063; 77067

== ENCOUNTER → 2020-12-06 12:42 | Outpatient (CLI) | payer MEDICARE, OTHER, SELFPAY ==
--- NOTE | 2020-12-06 12:44 | DI.MG.S_ITS ---
BILATERAL DIGITAL SCREENING MAMMOGRAM 3D/2D WITH CAD: 12/06/2020 CLINICAL: Routine screening. Family history of breast cancer. Breast cancer. Comparison is made to exams dated: 11/29/2019 mammogram, 11/25/2018 mammogram, and 11/15/2017 mammogram - [facility]. There are scattered fibroglandular elements in both breasts. Current study was also evaluated with a Computer Aided Detection (CAD) system. There are benign calcifications in the left breast. There also are benign post operative findings in the left breast. No significant masses, calcifications, or other findings are seen in either breast. There has been no significant interval change. IMPRESSION: BENIGN There is no mammographic evidence of malignancy. A 1 year screening mammogram is recommended. This exam was interpreted at Station ID: [id number]. NOTE: For mammograms, a report in lay terms will be sent to the patient. Approximately 15% of breast malignancies will not be visualized mammographically. In the management of a palpable breast mass, a negative mammogram must not discourage biopsy of a clinically suspicious lesion. Electronically Signed By: Jada reis/lorena:12/06/2020 17:07:06 letter sent: Normal Exam ACR BI-RADS Category 2: Benign Finding(s) 3342F
== END ==
PROVIDERS: PCP Family Medicine; Referring Provider Family Medicine; Visit Provider Family Medicine
DX: Z12.31 Encounter for screening mammogram for malignant neoplasm of breast (principal); Z85.3 Personal history of malignant neoplasm of breast; Z80.3 Family history of malignant neoplasm of breast
CPT/HCPCS: 77063; 77067

== ENCOUNTER → 2021-05-09 16:08 | Outpatient (CLI) | payer MEDICARE, OTHER, SELFPAY | PROVIDERS: PCP Family Medicine; Visit Provider Obstetrics & Gynecology | DX: N95.0 Postmenopausal bleeding (principal); R10.9 Unspecified abdominal pain | CPT/HCPCS: 87077; 87086; 87186 ==

== ENCOUNTER → 2022-01-17 13:53 | Outpatient (CLI) | payer MEDICARE, OTHER, SELFPAY ==
--- NOTE | 2022-01-17 13:54 | DI.MG.S_ITS ---
BILATERAL DIGITAL SCREENING MAMMOGRAM 3D/2D WITH CAD: 01/17/2022 CLINICAL: Routine screening. Comparison is made to exams dated: 12/06/2020 mammogram, 11/29/2019 mammogram, and 11/25/2018 mammogram - [facility]. There are scattered fibroglandular elements in both breasts. Current study was also evaluated with a Computer Aided Detection (CAD) system. There are benign calcifications in the left breast. There also are benign post operative findings in the left breast. No significant masses, calcifications, or other findings are seen in either breast. There has been no significant interval change. IMPRESSION: BENIGN There is no mammographic evidence of malignancy. A 1 year screening mammogram is recommended. This exam was interpreted at Station ID: [id number]. NOTE: For mammograms, a report in lay terms will be sent to the patient. Approximately 15% of breast malignancies will not be visualized mammographically. In the management of a palpable breast mass, a negative mammogram must not discourage biopsy of a clinically suspicious lesion. Electronically Signed By: Jada reis/lorena:01/17/2022 15:16:14 letter sent: Normal Exam ACR BI-RADS Category 2: Benign Finding(s) 3342F
== END ==
PROVIDERS: PCP Family Medicine; Referring Provider Family Medicine; Visit Provider Family Medicine
DX: Z12.31 Encounter for screening mammogram for malignant neoplasm of breast (principal)
CPT/HCPCS: 77063; 77067

== ENCOUNTER → 2022-01-24 13:31 | Outpatient (CLI) | payer MEDICARE, OTHER, SELFPAY ==
--- NOTE | 2022-01-24 | DI.RAD.S_ITS ---
PROCEDURE: XR KNEE RT 3V INDICATIONS: RIGHT KNEE PAIN TECHNIQUE: 3 views of the knee were acquired. COMPARISON: None. FINDINGS: Bones: No fractures or dislocations. No suspicious bony lesions. Severe medial and patellofemoral as well as minimal to mild lateral compartment narrowing are present. Periarticular osteophytes are present. No erosions. Soft tissues: No joint effusion. No suspicious soft tissue calcifications. IMPRESSION: Tricompartmental arthritic change. Dictated by: Brigida Drew M.D. on 01/24/2022 at 14:39 Approved by: Brigida Drew M.D. on 01/24/2022 at 14:40
== END ==
PROVIDERS: PCP Family Medicine; Referring Provider Physician Assistant; Visit Provider Physician Assistant
DX: M25.561 Pain in right knee (principal)
CPT/HCPCS: 73562

== ENCOUNTER → 2022-09-19 12:19 | Outpatient (CLI) | payer MEDICARE, OTHER, SELFPAY ==
--- NOTE | 2022-09-19 12:47 | DI.DEXA.S_ITS ---
Indication: postmenopausal osteoporosis; Referring Provider: SMITHA ALCARAZ Study: Bone densitometry was performed. Exam Date: September 19, 2022 Accession number: [id number] Bone Density: Region BMD T-score Z-score Classification AP Spine(L2, L3, L4) 0.947 -1.2 1.8 Osteopenia Femoral Neck (Left) 0.828 -0.2 2.3 Normal Total Hip (Left) 0.720 -1.8 0.5 Osteopenia Femoral Neck (Right) 0.553 -2.7 -0.1 Osteoporosis Total Hip (Right) 0.641 -2.5 -0.1 Osteoporosis Total Hip Mean 0.681 -2.2 0.2 Osteopenia World Health Organization criteria for BMD impression classify patients as: Normal (T-score at or above -1.0), Osteopenia (T-score between -1.0 and -2.5), or Osteoporosis (T-score at or below -2.5). 10-year Fracture Risk: FRAX not reported because: Some T-score for Spine Total or Hip Total or Femoral Neck at or below -2.5 Previous Exams: -- Region Exam Age BMD T-score BMD Change BMD Change Date g/cm2 vs Baseline vs Previous -- AP Spine (L2-L4) 09/19/2022 87 0.947 -1.2 -0.052 (-5.2%)# -0.052 (-5.2%)# 06/07/2019 84 0.999 -0.7 Total Hip(Left) 09/19/2022 87 0.720 -1.8 0.044 (6.6%)# 0.044 (6.6%)# 06/07/2019 84 0.675 -2.2 Total Hip(Right) 09/19/2022 87 0.641 -2.5 0.028 (4.6%)# 0.028 (4.6%)06/07/2019 84 0.613 -2.7 -- *Denotes significance at 95% confidence level, LSC for AP Spine = 0.022 g/cm2, LSC for Total Hip = 0.027 g/cm2 # Denotes dissimilar scan types or analysis methods Impression: The patient has osteoporosis, based on the Right Femoral Neck T-score. No significant bone loss was observed. Discussion: INCREASED RISK OF FRACTURE. BONE DENSITY IS UNDESIRABLY LOW AT ONE OR MORE SKELETAL SITES, CONSISTENT WITH POSTMENOPAUSAL OSTEOPOROSIS. This patient's lowest T-score meets the World Health Organization's (WHO) criteria for osteoporosis at one or more sites (T-score -2.5 or below). In untreated patients, the risk of osteoporotic fracture increases approximately two-fold for each 1.0 SD decrease in T-score. Low bone density is not the only risk factor for fracture; also consider factors such as patient's age, frailty or poor health, risk of falling, risk of injury, previous osteoporotic fracture, family history of osteoporosis, cigarette smoking, low body weight, etc. Not everyone with low bone mineral density has osteoporosis; osteomalacia and other metabolic bone disorders should also be considered. Patients who have osteoporosis should be evaluated for specific diseases and conditions (secondary causes) that may cause or contribute to bone loss. The [place] [employer] Endocrinologists (AACE) and National Osteoporosis Foundation (NOF) recommend pharmacologic intervention for all postmenopausal women whose T-score is in this range. The patient should follow a healthful lifestyle (good nutrition with adequate calcium and vitamin D, and appropriate weight-bearing exercise). Follow-Up: Consider a repeat BMD and Vertebral Fracture Assessment (VFA) exam in 2 years or sooner if medically necessary, to reassess this patient's status. Reported by: Boston Mckinney M.D. on 09/19/2022 1:01:00 PM.
== END ==
PROVIDERS: PCP Family Medicine; Referring Provider Family Medicine; Visit Provider Family Medicine
DX: M81.0 Age-related osteoporosis without current pathological fracture (principal); Z78.0 Asymptomatic menopausal state; Z90.710 Acquired absence of both cervix and uterus
CPT/HCPCS: 77080

== ENCOUNTER → 2022-11-14 15:33 | Outpatient (CLI) | payer MEDICARE, OTHER, SELFPAY ==
[2022-11-14 16:48] LABS: Add Manual Diff / Slide Review NO; Basophils Absolute Auto 100 /uL (0-100); Basophils Percent Auto 1.1 % (0-2); Eosinophils Absolute Auto 100 /uL (0-450); Eosinophils Percent Auto 0.7 % (2-4); Hematocrit 42.1 % (36-46); Hemoglobin 14.1 g/dL (12.0-16.0); Lymphocytes Absolute Auto 2600 /uL (1100-4500); Lymphocytes Percent Auto 31.9 % (25-40); Mean Corpuscular HGB Conc 33.4 % (30-36); Mean Corpuscular Hemoglobin 30.8 PG (26-34); Mean Corpuscular Volume 92.1 fL (80-100); Monocytes Absolute Auto 800 /uL (0-900); Monocytes Percent Auto 9.4 % (3-14); Neutrophils Absolute Auto 4600 /uL (1500-7000); Neutrophils Percent Auto 56.9 % (50-75); Platelet Count 265 X10^3/uL (150-400); Red Blood Cell Count 4.57 X10^6/uL (4.0-5.2); Red Cell Distribution Width 14.4 % (11.6-14.8); White Blood Cell Count 8.2 X10^3/uL (4.5-11.0)
[2022-11-14 18:06] LABS: Alanine Aminotransferase 19 IU/L (<35); Albumin 4.4 g/dL (3.5-5.0); Albumin Globulin Ratio 1.3 (1.0-2.8); Alkaline Phosphatase 107 U/L (38-126); Aspartate Aminotransferase 23 IU/L (14-36); BUN Creatinine Ratio 22.2 (6-22); Bilirubin Total 0.4 mg/dL (0.2-1.3); Blood Urea Nitrogen 16 mg/dL (7-17); Calcium 9.1 mg/dL (8.4-10.2); Carbon Dioxide 26 mmol/L (22-32); Chloride 105 mmol/L (98-107); Estimated Glomerular Filt Rate > 60 mL/min (>60); Globulin 3.3 g/dL (1.7-4.1); Glucose 100 mg/dL (80-110); HEMOLYSIS < 15 (0-50); Potassium 4.5 mmol/L (3.4-5.1); Sodium 140 mmol/L (137-145); Total Protein 7.7 g/dL (6.3-8.2)
[2022-11-14 18:34] LABS: Thyroid Stimulating Hormone 1.14 uIU/mL (0.47-4.68)
== END ==
PROVIDERS: PCP Family Medicine; Referring Provider Family Medicine; Visit Provider Family Medicine
DX: K63.5 Polyp of colon (principal); I10 Essential (primary) hypertension; Z00.00 Encounter for general adult medical examination without abnormal findings
CPT/HCPCS: 36415; 80053; 84443; 85025

== ENCOUNTER → 2023-05-06 12:54 | Outpatient (CLI) | payer MEDICARE, OTHER, SELFPAY ==
--- NOTE | 2023-05-06 12:55 | DI.MG.S_ITS ---
BILATERAL DIGITAL SCREENING MAMMOGRAM 3D/2D WITH CAD: 05/06/2023 CLINICAL: Routine screening. Personal history of left breast cancer. Family history of breast cancer. Comparison is made to exams dated: 01/17/2022 mammogram, 12/06/2020 mammogram, and 11/29/2019 mammogram - [facility]. There are scattered areas of fibroglandular density in both breasts (category b / 25%-50% glandular tissue). Current study was also evaluated with a Computer Aided Detection (CAD) system. There are benign calcifications in the left breast. There also are benign post operative findings in the left breast. No significant masses, calcifications, or other findings are seen in either breast. There has been no significant interval change. IMPRESSION: BENIGN There is no mammographic evidence of malignancy. A 1 year screening mammogram is recommended. This exam was interpreted at Station ID: [id number]. NOTE: For mammograms, a report in lay terms will be sent to the patient. Approximately 15% of breast malignancies will not be visualized mammographically. In the management of a palpable breast mass, a negative mammogram must not discourage biopsy of a clinically suspicious lesion. Electronically Signed By: Diaz fernandez/lorena:05/06/2023 15:51:00 letter sent: Normal Exam ACR BI-RADS Category 2: Benign Finding(s) 3342F
== END ==
PROVIDERS: PCP Family Medicine; Referring Provider Family Medicine; Visit Provider Family Medicine
DX: Z12.31 Encounter for screening mammogram for malignant neoplasm of breast (principal); Z85.3 Personal history of malignant neoplasm of breast; Z80.3 Family history of malignant neoplasm of breast
CPT/HCPCS: 77063; 77067

== ENCOUNTER → 2024-06-17 14:04 | Outpatient (CLI) | payer MEDICARE, OTHER, SELFPAY ==
--- NOTE | 2024-06-17 14:05 | DI.MG.S_ITS ---
BILATERAL DIGITAL SCREENING MAMMOGRAM 3D/2D WITH CAD: 06/17/2024 CLINICAL: Routine screening. Personal history of left breast cancer. Comparison is made to exams dated: 05/06/2023 mammogram, 01/17/2022 mammogram, and 12/06/2020 mammogram - [facility]. There are scattered areas of fibroglandular density (category b / 25%-50% glandular tissue). Current study was also evaluated with a Computer Aided Detection (CAD) system. There are benign post operative findings in the left breast. No significant masses, calcifications, or other findings are seen in either breast. There has been no significant interval change. IMPRESSION: BENIGN There is no mammographic evidence of malignancy. A 1 year screening mammogram is recommended. This exam was interpreted at Station ID: [id number]. NOTE: For mammograms, a report in lay terms will be sent to the patient. Approximately 15% of breast malignancies will not be visualized mammographically. In the management of a palpable breast mass, a negative mammogram must not discourage biopsy of a clinically suspicious lesion. Electronically Signed By: Nidhi Gongora M.D., Ph.D. glory/lorena:06/19/2024 01:48:12 letter sent: Normal Exam ACR BI-RADS Category 2: Benign
== END ==
PROVIDERS: PCP Family Medicine; Referring Provider Family Medicine; Visit Provider Family Medicine
DX: Z12.31 Encounter for screening mammogram for malignant neoplasm of breast (principal); Z85.3 Personal history of malignant neoplasm of breast
CPT/HCPCS: 77063; 77067

== ENCOUNTER → 2025-02-18 11:06 | Outpatient (CLI) | payer MEDICARE, OTHER, SELFPAY ==
[2025-02-18 12:16] LABS: Add Manual Diff / Slide Review NO; Hematocrit 40.3 % (36-46); Hemoglobin 13.6 g/dL (12.0-16.0); Lymphocytes Absolute Auto 3200 /uL (1100-4500); Mean Corpuscular HGB Conc 33.8 % (30-36); Mean Corpuscular Hemoglobin 31.3 PG (26-34); Mean Corpuscular Volume 92.7 fL (80-100); Platelet Count 281 X10^3/uL (150-400)
[2025-02-18 14:29] LABS: Alanine Aminotransferase 19 IU/L (<35); Albumin 4.4 g/dL (3.5-5.0); Albumin Globulin Ratio 1.3 (1.0-2.8); Alkaline Phosphatase 105 U/L (38-126); Blood Urea Nitrogen 27 mg/dL (7-17); Calcium 9.3 mg/dL (8.4-10.2); Carbon Dioxide 22 mmol/L (22-32); Chloride 107 mmol/L (98-107); Estimated Glomerular Filt Rate > 60 mL/min (>60); Globulin 3.4 g/dL (1.7-4.1); Glucose 104 mg/dL (70-99); HEMOLYSIS < 15 (0-50); Potassium 4.6 mmol/L (3.4-5.1); Sodium 139 mmol/L (137-145); Total Protein 7.8 g/dL (6.3-8.2)
[2025-02-18 19:28] LABS: Vitamin B12 300 pg/mL (239-931)
[2025-02-18 22:11] LABS: TSH w/ Reflex to FT4 0.97 uIU/mL (0.47-4.68)
== END ==
PROVIDERS: PCP Family Medicine; Referring Provider Family Medicine; Visit Provider Family Medicine
DX: I10 Essential (primary) hypertension (principal); K21.9 Gastro-esophageal reflux disease without esophagitis; R53.1 Weakness
CPT/HCPCS: 36415; 80053; 82607; 84443; 85025